=== PATIENT | female | born 1995 | race Caucasian/White ===

== ENCOUNTER 2021-04-14 15:15 | Inpatient (IN) | payer MEDICARE, MEDICAID, SELFPAY ==
[2021-04-14] MEDS: lithium carbonate 300 mg Capsule 600 MG PO (08:45)
[2021-04-14 16:14] VITALS: BP 138/88; PULSE 104; RESP 18; TEMP 36.7; O2SAT 98
[2021-04-14 16:16] VITALS: BMI 37.1
[2021-04-14] MEDS: hyDROXYzine 25 mg Capsule 50 MG PO (17:51)
[2021-04-14] MEDS: cloZAPine 100 mg Tablet PO (20:41)
[2021-04-14] MEDS: cloZAPine 100 mg Tablet 25 MG PO (20:44)
[2021-04-14] MEDS: trazodone 50 mg Tablet PO (20:45)
[2021-04-14] MEDS: mirtazapine 15 mg Tablet PO (20:45)
[2021-04-14] MEDS: metoprolol tartrate 25 mg Tablet PO (21:37)
[2021-04-14] MEDS: diphenhydrAMINE 25 mg Capsule PO (21:42)
[2021-04-14 22:00] VITALS: BP 124/85; PULSE 120; RESP 20; TEMP 36.9; O2SAT 99
--- NOTE | 2021-04-15 00:41 | PC.NURSE ---
2044 C/o insomnia trazodone given po. 2144-Med was effective.
[2021-04-15 06:00] VITALS: BP 108/74; PULSE 92; RESP 17; TEMP 36.5; O2SAT 99
--- NOTE | 2021-04-15 08:26 | P.NPUHP_ITS ---
Providers/Chief Complaint Admitting Physician: Freeman Fitzgerald MD Chief Complaint: Suicidal Ideation HPI NPU History of Present Illness Leslie Bundy is a 25 year old female who presented to the outside hospital with reports of aggression and homicidal threats. She was transferred to [facility] and admitted to the neuropsychiatric unit for definitive treatment of those issues. Patient was a limited historian only able to likely parent conversation pieces that she has shared in the past like I have schizophrenia. She was unable to give any clear indication of why she had the aggression or behavioral outburst that led to her going to the outside hospital. Significant collateral information obtained from family and outpatient treatment team. Her guardian. She is clearly limited and unable to have insight into her circumstance and behavior at a level that would necessitate change in functionality on a common adult psychiatric unit. We discussed with her and her guardian and treatment team the risk benefits and alternatives of returning her back to her outpatient treatment team without making any changes and that we would monitor her tonight and discharge in the morning if there are no issues and they understood and agreed to proceed as is documented in this note. Meds NPU Home Medications Medication Instructions Recorded Confirmed Last Taken Type Benadryl 25 mg PO BID 04/14/21 04/14/21 Unknown History Vitamin D3 50 mcg PO DAILY 04/14/21 04/14/21 Unknown History aripiprazole 400 mg suspension, 400 mg IM ONCE 04/14/21 04/14/21 Unknown History extended rel.intramuscular syringe (Michelle Mcneill) cetirizine 10 mg tablet 10 mg PO DAILY 04/14/21 04/14/21 Unknown History clozapine 100 mg tablet (Clozaril) 100 mg PO BEDTIME 04/14/21 04/14/21 Unknown History clozapine 25 mg tablet (Clozaril) 25 mg PO BID 04/14/21 04/14/21 Unknown History fluticasone furoate 50 50 mcg INHALATION DAILY 04/14/21 04/14/21 Unknown History mcg/actuation blister powder for inhalation hydroxyzine pamoate 50 mg capsule 50 mg PO DAILY 04/14/21 04/14/21 Unknown History levonorgestrel 0.15 mg-ethinyl 1 tab PO DAILY 04/14/21 04/14/21 Unknown History estradiol 30 mcg tablets,3 mos pack(91) lithium carbonate 300 mg capsule 300 mg PO DAILY 04/14/21 04/14/21 Unknown History lithium carbonate 600 mg capsule 600 mg PO BEDTIME 04/14/21 04/14/21 Unknown History metoprolol tartrate 25 mg PO BID 04/14/21 04/14/21 Unknown History mirtazapine 15 mg tablet (Remeron) 15 mg PO BEDTIME 04/14/21 04/14/21 Unknown History omeprazole 20 mg capsule,delayed 20 mg PO DAILY 04/14/21 04/14/21 Unknown History release oxybutynin chloride 5 mg 5 mg PO DAILY 04/14/21 04/14/21 Unknown History tablet,extended release 24 hr polyethylene glycol 3350 3,350 mg PO DAILY 04/14/21 04/14/21 Unknown History promethazine 25 mg PO Q6H PRN 04/14/21 04/14/21 Unknown History aripiprazole 400 mg suspension, 400 mg IM BEDTIME 04/15/21 04/15/21 Unknown History extended rel.intramuscular syringe (Michelle Mcneill) Allergies Allergy/AdvReac Type Severity Reaction Status Date / Time lamotrigine [From Lamictal] Allergy ADR-Itching Verified 04/14/21 16:51 Mental Status Exam MSE Comments: This is a obese white female with hospital scrubs on with limited grooming and eye contact. No abnormal movements except for significant psychomotor retardation. Cooperative with exam in no acute distress. Speech was decreased rate and volume and childlike. Mood described as fine, affect subdued. Thought process linear. Thought content: Patient denied suicidal or homicidal ideation, there were no delusions reported or noted, she denied any auditory or visual hallucinations. Attention and concentration were intact and memory was mostly reliable but limited but none were formally tested. She alert and oriented x3. Insight and judgment are impaired, impulse control is impaired, intellectual ability is impaired. Vitals/I&O/Wt Last Vital Signs Temp 97.7 F 04/15/21 06:00 Pulse 92 04/15/21 06:00 Resp 17 04/15/21 06:00 BP 108/74 04/15/21 06:00 Pulse Ox 99 04/15/21 06:00 Weight last 48 hrs Weight 92.1 kg A&P Assessment and plan (1) Moderate intellectual disability: Status: Acute (2) Impulse control disorder: Status: Acute Plan This is a 25-year-old white female with a long history of intellectual disability, aggression, impulsivity with recent concern for what appear to be baseline behaviors that have been consistent but troubling. 1. Continue current medication. 2. Continue every 15 minute checks for safety. 3. Encourage individual, group and milieu therapies. 4. Patients with clear cognitive limitations, impulsivity and poor insight and judgment with baseline behavior. Will monitor overnight and discharge in the morning if no issues. Involuntary Hold Information 96 Hour Hold: 96 Hour Involuntary Admission: Yes Attestations NPU Medical Necessity Statement*: Inpatient hospitalization is medically necessary and the clinically appropriate intervention at this time. We will monitor medication to make changes as indicated. Patient will be in the hospital for over two midnights. Likely length of stay 1-3 days. Coding Level of Care Code Acute [employer] [facility] Diagnoses Moderate intellectual disability F71 Impulse control disorder F63.9
[2021-04-15] MEDS: pantoprazole DR 40 mg Tablet PO (09:43)
[2021-04-15] MEDS: polyethylene glycol 3350 Pkt 17 gm PO (09:43)
[2021-04-15] MEDS: cetirizine 10 mg Tablet PO (09:43)
[2021-04-15] MEDS: metoprolol tartrate 25 mg Tablet PO ×2 (09:43→20:55)
[2021-04-15] MEDS: lithium carbonate 300 mg Capsule PO (09:44)
[2021-04-15] MEDS: oxybutynin chloride XL 5 MG TABLET PO (09:44)
[2021-04-15] MEDS: cloZAPine 100 mg Tablet 25 MG PO ×2 (09:44→20:54)
[2021-04-15] MEDS: acetaminophen 325 mg Tablet 650 MG PO ×2 (09:45→12:49)
[2021-04-15] MEDS: hyDROXYzine 25 mg Capsule 50 MG PO (09:45)
[2021-04-15] MEDS: OLANZapine 5 mg ODT PO (12:49)
[2021-04-15] MEDS: promethazine 25 mg Tablet PO (12:49)
[2021-04-15 14:00] VITALS: BP 115/75; PULSE 112; RESP 17; TEMP 36.7; O2SAT 98
[2021-04-15 20:53] VITALS: BP 129/92; PULSE 85; RESP 16; TEMP 37.1; O2SAT 99
[2021-04-15] MEDS: diphenhydrAMINE 25 mg Capsule PO (20:55)
[2021-04-15] MEDS: mirtazapine 15 mg Tablet PO (20:55)
[2021-04-15] MEDS: lithium carbonate 300 mg Capsule 600 MG PO (20:55)
[2021-04-15] MEDS: cloZAPine 100 mg Tablet PO (21:19)
[2021-04-16 06:00] VITALS: BP 99/65; PULSE 62; RESP 17; O2SAT 96
--- NOTE | 2021-04-16 09:28 | W.PM.NPUDCS ---
Diagnoses at Discharge Discharge Diagnosis (1) Moderate intellectual disability: Status: Acute (2) Impulse control disorder: Status: Acute Reason for Visit Reason for Visit: Suicidal Ideation Brief History: History of Present Illness Leslie Bundy is a 25 year old female who presented to the outside hospital with reports of aggression and homicidal threats.? She was transferred to [facility] and admitted to the neuropsychiatric unit for definitive treatment of those issues.? Patient was a limited historian only able to likely parent conversation pieces that she has shared in the past like I have schizophrenia. ? She was unable to give any clear indication of why she had the aggression or behavioral outburst that led to her going to the outside hospital.? Significant collateral information obtained from family and outpatient treatment team.? Her guardian.? She is clearly limited and unable to have insight into her circumstance and behavior at a level that would necessitate change in functionality on a common adult psychiatric unit.? We discussed with her and her guardian and treatment team the risk benefits and alternatives of returning her back to her outpatient treatment team without making any changes and that we would monitor her tonight and discharge in the morning if there are no issues and they understood and agreed to proceed as is documented in this note. Hospital Course Hospital Course She quickly acclimated to the individual, group and milieu therapies provided but did not have cognitive ability enough to take advantage of it. She clearly has intellectual disability as her primary issue leading to her impulsivity and this is not something that would be amenable to anything other than behavioral interventions to augment her current medications which were significant including Clozaril. She was evaluated for safety and discharged without any changes in agreement with family and her outpatient team. At the outside hospital, patient had routine laboratory studies which were within normal limits except for few outliers. Additionally there was a general medical evaluation which was also within normal limits and revealed no new acute processes. Discharge Summary: At the time of discharge, she denied psychosis or lethality. Mood and anxiety were well managed. Patient endorsed a plan to follow-up with the aftercare recommendations of the treatment team. Patient was evaluated and deemed to be absent credible lethality, and had achieved the maximum benefit from an inpatient hospitalization, so was discharged. Involuntary Hold Information 96 Hour Hold: 96 Hour Involuntary Admission: Yes Mental Status Exam MSE Comments: This is a obese white female with hospital scrubs on with limited grooming and eye contact.? No abnormal movements except for significant psychomotor retardation.? Cooperative with exam in no acute distress.? Speech was decreased rate and volume and childlike.? Mood described as okay, affect subdued.? Thought process linear.? Thought content: Patient denied suicidal or homicidal ideation, there were no delusions reported or noted, she denied any auditory or visual hallucinations.? Attention and concentration were intact and memory was mostly reliable but limited but none were formally tested.? She alert and oriented x3.? Insight and judgment are impaired, impulse control is impaired, intellectual ability is impaired. Discharge Data Vitals: Last Vital Signs Temp 98.7 F 04/15/21 20:53 Pulse 62 04/16/21 06:00 Resp 17 04/16/21 06:00 BP 99/65 04/16/21 06:00 Pulse Ox 96 04/16/21 06:00 Discharge Plan Discharge Patient Disposition: Home Condition: Stable Prescriptions: Continued Benadryl bottle 25 mg PO BID 0RF cetirizine 10 mg Tablet 10 mg PO DAILY 0RF Clozaril 25 mg Tablet 25 mg PO BID 0RF Clozaril 100 mg Tablet 100 mg PO BEDTIME 0RF fluticasone furoate 50 mcg/actuation Blister With Device 50 mcg INHALATION DAILY 0RF levonorgestrel-ethinyl estrad 0.15 mg-30 mcg (91) tablets,dose pack,3 month 1 tab PO DAILY 0RF lithium carbonate 300 mg capsule 300 mg PO DAILY 0RF lithium carbonate 600 mg capsule 600 mg PO BEDTIME 0RF metoprolol tartrate 25 mg PO BID 0RF omeprazole 20 mg capsule,delayed release(DR/EC) 20 mg PO DAILY 0RF oxybutynin chloride 5 mg tablet extended release 24hr 5 mg PO DAILY 0RF polyethylene glycol 3350 3,350 mg PO DAILY 0RF promethazine bottle 25 mg PO Q6H PRN (Reason: Nausea) 0RF Remeron 15 mg Tablet 15 mg PO BEDTIME 0RF Vitamin D3 50 mcg PO DAILY 0RF hydroxyzine pamoate 50 mg capsule 50 mg PO DAILY 0RF Abilify Maintena 400 mg suspension,extended rel syring 400 mg IM ONCE 0RF Rx Instructions: Monthly Discontinued Abilify Maintena 400 mg suspension,extended rel syring 400 mg IM BEDTIME 0RF Discharge Orders: Discharge Order (Routine); Ordered 04/16/21 Ordered By: Steven Ortiz Discharge Diet: Usual diet Discharge Activity: Resume usual activity Patient Instructions: Opioid Safety Discharge Attestations NPU Time Spent in Discharge Care*: less than 30 min Specific Discharge Activities: Specific discharge activities: educating patient, discussing with field case manager/social workers/dc planners, documenting/other paperwork and evaluating patient/reviewing data Coding Level of Care Code Acute [facility] DC note Diagnoses Moderate intellectual disability F71 Impulse control disorder F63.9
[2021-04-16] MEDS: polyethylene glycol 3350 Pkt 17 gm PO (09:32)
[2021-04-16] MEDS: hyDROXYzine 25 mg Capsule 50 MG PO (09:34)
[2021-04-16] MEDS: metoprolol tartrate 25 mg Tablet PO (09:34)
[2021-04-16] MEDS: lithium carbonate 300 mg Capsule PO (09:35)
[2021-04-16] MEDS: cloZAPine 100 mg Tablet 25 MG PO (09:35)
[2021-04-16] MEDS: oxybutynin chloride XL 5 MG TABLET PO (09:35)
[2021-04-16] MEDS: pantoprazole DR 40 mg Tablet PO (09:35)
[2021-04-16] MEDS: cetirizine 10 mg Tablet PO (09:35)
[2021-04-16 10:29] VITALS: BP 99/65; PULSE 62; RESP 17; O2SAT 96
== END 2021-04-16 11:00 | disposition home or self-care (01) | DRG 886 ==
PROVIDERS: Admitting Provider Psychiatry & Neurology Psychiatry; Visit Provider Psychiatry & Neurology Psychiatry
DX: F91.1 Conduct disorder, childhood-onset type (principal); R45.850 Homicidal ideations; F63.9 Impulse disorder, unspecified; F71 Moderate intellectual disabilities; E66.9 Obesity, unspecified; Z68.37 Body mass index [BMI] 37.0-37.9, adult
CPT/HCPCS: 97150; 97165; Q0169